=== PATIENT | male | born 1980 | race Caucasian/White ===

== ENCOUNTER 2016-09-18 | Outpatient (CLI) | payer OTHER | END 2016-09-18 11:54 | disposition EMS.NT | DX: E16.2 Hypoglycemia, unspecified (principal) ==

== ENCOUNTER 2016-09-18 | Emergency (ER) | payer OTHER, MEDICARE | END 2016-09-18 15:20 | disposition home or self-care (01) ==

== ENCOUNTER 2016-12-17 14:02 | Outpatient (CLI) | payer OTHER, MEDICARE | END 2016-12-17 14:03 | disposition home or self-care (01) | LOC: NS 14:02 | PROVIDERS: ATTEND Family Medicine | DX: Z71.3 Dietary counseling and surveillance (principal); E10.9 Type 1 diabetes mellitus without complications; Z79.4 Long term (current) use of insulin; Z68.32 Body mass index [BMI] 32.0-32.9, adult | CPT/HCPCS: 97802 ==

== ENCOUNTER 2017-01-17 10:24 | Outpatient (CLI) | payer OTHER ==
[2017-01-17 20:25] LABS: ALBUMIN/GLOBULIN RATIO 1.5 (1.0-2.2); BILIRUBIN,TOTAL 1.1 mg/dL (0.2-1.0); CALCIUM 9.2 mg/dL (8.5-10.3); POTASSIUM 3.9 mmol/L (3.5-5.0); TOTAL PROTEIN 7.5 g/dL (6.7-8.2)
[2017-01-17 20:57] LABS: HEMOGLOBIN A1C 1.32 g/dL
== END 2017-01-17 10:25 | disposition home or self-care (01) ==
LOC: LAB.WCP 10:24
PROVIDERS: ATTEND Family Medicine
DX: E11.40 Type 2 diabetes mellitus with diabetic neuropathy, unspecified (principal); F84.0 Autistic disorder
CPT/HCPCS: 36415; 80053; 82043; 83036

== ENCOUNTER 2017-04-16 14:13 | Outpatient (CLI) | payer OTHER, MEDICARE ==
[2017-04-16 19:28] LABS: HEMOGLOBIN A1C 1.18 g/dL
[2017-04-16 19:51] LABS: ALBUMIN/GLOBULIN RATIO 1.4 (1.0-2.2); BILIRUBIN,TOTAL 0.7 mg/dL (0.2-1.0); BUN - BLOOD UREA NITROGEN 13 mg/dL (6-20); CALCIUM 8.9 mg/dL (8.5-10.3); CARBON DIOXIDE - CO2 28 mmol/L (21-32); CHLORIDE 108 mmol/L (101-111); CHOL/HDL RATIO 3.9 (<5.0); CHOLESTEROL 190 mg/dL; CREATININE 0.8 mg/dL (0.6-1.2); GFR - MDRD 110 (>89); HDL CHOLESTEROL 49 mg/dL; LDL/HDL RATIO 2.6 (<3.6); POTASSIUM 3.3 mmol/L (3.5-5.0); SODIUM 141 mmol/L (135-145); TOTAL PROTEIN 6.8 g/dL (6.7-8.2); TRIGLYCERIDES 62 mg/dL; VLDL CHOLESTEROL 12 mg/dL
[2017-04-16 19:54] LABS: GLUCOSE 53 mg/dL (70-100)
== END 2017-04-16 14:14 | disposition home or self-care (01) ==
LOC: LAB.WCP 14:13
PROVIDERS: ATTEND Family Medicine
DX: E10.9 Type 1 diabetes mellitus without complications (principal)
CPT/HCPCS: 36415; 80053; 80061; 83036

== ENCOUNTER 2017-04-20 21:24 | Outpatient (CLI) | payer OTHER, MEDICARE | END 2017-04-20 21:25 | disposition EMS.NT | LOC: EMS 21:24 | PROVIDERS: ATTEND Surgery | DX: R25.9 Unspecified abnormal involuntary movements (principal); E16.2 Hypoglycemia, unspecified ==

== ENCOUNTER 2017-11-30 19:27 | Emergency (ER) | payer OTHER, MEDICARE ==
[2017-11-30] MEDS ORDERED: TETANUS/DIPHTHERIA/PERTUSSIS 0.5 ML SYRINGE IM ONE (20:25)
--- NOTE | 2017-11-30 20:25 | ED Physician Documentation ---
PD HPI LOWER EXT INJURY - Stated complaint Stated Complaint: LT ELBOW/LT LEG/RT KNEE INJ - Chief complaint Chief Complaint: Laceration - History obtained from History obtained from: Patient - History of Present Illness PD HPI LOW EXT INJURY LOCATION: Other (37-year-old gentleman with long-standing type 1 diabetes had a trip and fall and has abrasions on the left elbow and left leg. Tetanus is unknown.) Review of Systems Constitutional: reports: Reviewed and negative Throat: reports: Reviewed and negative Cardiac: reports: Reviewed and negative PD PAST MEDICAL HISTORY - Past Medical History Past Medical History: Yes Cardiovascular: High cholesterol Endocrine/Autoimmune: Type 1 diabetes, HyPOthyroidism - Past Surgical History Past Surgical History: No - Present Medications Home Medications: Ambulatory Orders Medication Instructions Recorded Confirmed Subcutaneous Insulin Pump [Insulin 90 units SUBQ DAILY 03/14/14 07/05/17 Pump] Albuterol Sulfate [Proair Hfa 1 - 2 puffs INH Q4H PRN 08/01/16 07/05/17 Inhaler] Atorvastatin Calcium [Lipitor] 80 mg PO DAILY 08/01/16 07/05/17 Cetirizine [ZyrTEC] 10 mg PO DAILY 08/01/16 07/05/17 Cholecalciferol (Vitamin D3) 1,000 unit PO DAILY 08/01/16 07/05/17 [Vitamin D3] Fluticasone [Flonase] 1 sprays DIONI TID PRN 08/01/16 07/05/17 Losartan [Cozaar] 25 mg PO DAILY 08/01/16 07/05/17 - Allergies Allergies/Adverse Reactions: Allergies Allergy/AdvReac Type Severity Reaction Status Date / Time No Known Drug Allergies Allergy Verified 11/30/17 19:36 - Social History Does the pt smoke?: No Smoking Status: Never smoker Does the pt drink ETOH?: Yes Does the pt have substance abuse?: No - Immunizations Immunizations are current?: Yes - POLST Patient has POLST: No PD ED PE NORMAL - Vitals Vital signs reviewed: Yes - General General: Alert and oriented X 3, No acute distress - HEENT HEENT: PERRL, EOMI - Neck Neck: Supple, no meningeal sign, No bony TTP - Extremities Extremities: Other (There is an abrasion over the left olecranon, no bony tenderness or limited range of motion, the remainder his upper extremities are nontender. There is a tiny abrasion over the right knee and a larger but also shallow laceration over the left arana. He is able to walk and bear weight normally and there is no tenderness of the lower extremities.) - Neuro Neuro: Alert and oriented X 3, Normal speech Results - Vitals Vitals: Vital Signs - 24 hr 11/30/17 19:32 Temperature 36.8 C Heart Rate 85 Respiratory 16 Rate Blood Pressure 144/98 H O2 Saturation 97 Oxygen O2 Source Room air PD MEDICAL DECISION MAKING - ED course ED course: Wounds were cleansed and dressed by the tech, they do not seem significant enough to warrant prophylactic antibiotics even in light of his diabetic status. Tetanus was updated. Departure - Departure Disposition: Home, Self Care Clinical Impression: Abrasion Condition: Good Record reviewed to determine appropriate education?: Yes Instructions: ED Abrasion Comments: Come back for any signs of infection which would include: Redness, swelling, drainage, increased pain, or fevers. Your blood pressure was elevated today on check into the emergency department. This does not mean that you have hypertension, it is a common phenomenon to come to the emergency department and have elevated blood pressure. I recommend that you see your primary care physician within the week to have it rechecked when you are feeling better.
[2017-11-30] MEDS ORDERED: BACITRACIN OINT TOP ONE (20:34)
[2017-11-30 21:11] VITALS: BP 130/88
== END 2017-11-30 21:10 | disposition home or self-care (01) ==
LOC: ED 19:27
DX: S50.312A Abrasion of left elbow, initial encounter (principal); S80.212A Abrasion, left knee, initial encounter; W01.0XXA Fall on same level from slipping, tripping and stumbling without subsequent striking against object, initial encounter; E78.00 Pure hypercholesterolemia, unspecified; E10.9 Type 1 diabetes mellitus without complications; Z79.4 Long term (current) use of insulin; Z96.41 Presence of insulin pump (external) (internal); R03.0 Elevated blood-pressure reading, without diagnosis of hypertension; Z23 Encounter for immunization
CPT/HCPCS: 90471; 90715; 99282; 99283; A9270

== ENCOUNTER 2018-04-23 10:39 | Outpatient (CLI) | payer OTHER, MEDICARE ==
[2018-04-23 13:36] LABS: ALBUMIN 3.9 g/dL (3.2-5.5); ALBUMIN/GLOBULIN RATIO 1.3 (1.0-2.2); BILIRUBIN,TOTAL 0.6 mg/dL (0.2-1.0); CALCIUM 9.5 mg/dL (8.5-10.3); CREATININE 0.8 mg/dL (0.6-1.2)
[2018-04-23 13:43] LABS: HB2 TOTAL 16.1 g/dL; HEMOGLOBIN A1C 1.2 g/dL
== END 2018-04-23 10:40 ==
LOC: LAB.WCP 10:39
PROVIDERS: ATTEND Family Medicine
DX: L40.9 Psoriasis, unspecified (principal); E10.9 Type 1 diabetes mellitus without complications
CPT/HCPCS: 36415; 80053; 83036

== ENCOUNTER 2018-07-30 17:16 | Outpatient (CLI) | payer OTHER, MEDICARE | END 2018-07-30 17:17 | disposition home or self-care (01) | LOC: EMS 17:16 | PROVIDERS: ATTEND Surgery | DX: R41.82 Altered mental status, unspecified (principal); Z53.20 Procedure and treatment not carried out because of patient's decision for unspecified reasons ==

== ENCOUNTER 2018-07-30 18:35 | Emergency (ER) | payer OTHER, MEDICARE ==
--- NOTE | 2018-07-30 18:52 | ED Physician Documentation ---
History of Present Illness - Stated complaint Stated Complaint: LOW BLOOD SUGAR - History obtained from History obtained from: Patient, Family - History of Present Illness Timing: Today (38-year-old gentleman with an insulin pump. He was attended to by paramedics at home just prior to arrival because his blood sugar was 16. He does not know why this happened. He was administered D50 on scene but wanted to avoid an ambulance ride up. He has he eaten since then and feels fine now. He does not remember if he bolused himself today but his basal rate is at its usual, 2.3 units/h.) Review of Systems Constitutional: denies: Fever, Chills Cardiac: denies: Chest pain / pressure, Palpitations Respiratory: denies: Dyspnea, Cough PD PAST MEDICAL HISTORY - Past Medical History Cardiovascular: High cholesterol Endocrine/Autoimmune: Type 1 diabetes, HyPOthyroidism - Past Surgical History Past Surgical History: No - Present Medications Home Medications: Ambulatory Orders Medication Instructions Recorded Confirmed Subcutaneous Insulin Pump [Insulin 90 units SUBQ DAILY 03/14/14 07/05/17 Pump] Albuterol Sulfate [Proair Hfa 1 - 2 puffs INH Q4H PRN 08/01/16 07/05/17 Inhaler] Atorvastatin Calcium [Lipitor] 80 mg PO DAILY 08/01/16 07/05/17 Cetirizine [ZyrTEC] 10 mg PO DAILY 08/01/16 07/05/17 Cholecalciferol (Vitamin D3) 1,000 unit PO DAILY 08/01/16 07/05/17 [Vitamin D3] Fluticasone [Flonase] 1 sprays DIONI TID PRN 08/01/16 07/05/17 Losartan [Cozaar] 25 mg PO DAILY 08/01/16 07/05/17 - Allergies Allergies/Adverse Reactions: Allergies Allergy/AdvReac Type Severity Reaction Status Date / Time No Known Drug Allergies Allergy Verified 07/30/18 18:57 - Social History Does the pt smoke?: No Smoking Status: Never smoker Does the pt drink ETOH?: Yes Does the pt have substance abuse?: No - Immunizations Immunizations are current?: Yes - POLST Patient has POLST: No PD ED PE NORMAL - Vitals Vital signs reviewed: Yes - General General: Alert and oriented X 3, No acute distress - Derm Derm: Normal color, Warm and dry, No rash - Neuro Neuro: Alert and oriented X 3, Normal speech - Psych Psych: Normal mood, Normal affect Results - Vitals Vitals: Vital Signs - 24 hr 07/30/18 18:44 Temperature 36.2 C L Heart Rate 113 H Respiratory 20 Rate Blood Pressure 156/103 H O2 Saturation 100 Oxygen O2 Source Room air - Labs Labs: Laboratory Tests 07/30/18 18:49 POC Whole Bld Glucose 250 H PD MEDICAL DECISION MAKING - ED course ED course: This is a type I diabetic with a hypoglycemic episode at home down to 16. His blood sugar is 250 on arrival. We will observe him for several hours with frequent blood sugar checks. 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 Return for new or worsening symptoms.
[2018-07-30 20:54] VITALS: BP 129/88
== END 2018-07-30 20:54 | disposition home or self-care (01) ==
LOC: ED 18:35
DX: E09.649 Drug or chemical induced diabetes mellitus with hypoglycemia without coma (principal); T38.3X5A Adverse effect of insulin and oral hypoglycemic [antidiabetic] drugs, initial encounter; Z96.41 Presence of insulin pump (external) (internal); E03.9 Hypothyroidism, unspecified; E78.00 Pure hypercholesterolemia, unspecified
CPT/HCPCS: 99283

== ENCOUNTER 2018-08-19 10:05 | Outpatient (CLI) | payer OTHER, MEDICARE ==
[2018-08-19 12:34] LABS: BASOPHILS % (AUTO) 0.9 %; EOSINOPHILS # (AUTO) 0.1 10^3/uL (0.0-0.7); EOSINOPHILS % (AUTO) 2.8 %; HGB - HEMOGLOBIN 14.9 g/dL (14.0-18.0); LYMPHOCYTES % (AUTO) 38.6 %; MEAN CORPUSCULAR VOLUME 88.4 fL (80.0-94.0); MEAN PLATELET VOLUME 8.8 fL (7.4-11.4); MONOCYTES # (AUTO) 0.4 10^3/uL (0.0-1.0); MONOCYTES % (AUTO) 8.1 %; NEUTROPHILS # (AUTO) 2.6 10^3/uL (1.5-6.6); NEUTROPHILS % (AUTO) 49.6 %; PLT - PLATELET COUNT 272 10^3/uL (130-450); RED BLOOD COUNT 4.94 10^6/uL (4.70-6.10); RED CELL DISTRIBUTION WIDTH 13.7 % (12.0-15.0); WHITE BLOOD COUNT 5.2 x10^3/uL (4.8-10.8)
[2018-08-19 13:04] LABS: HB2 TOTAL 15.6 g/dL; HEMOGLOBIN A1C 1.02 g/dL; HEMOGLOBIN A1C % 8.1 % (4.6-6.2)
[2018-08-19 13:25] LABS: ALBUMIN 3.9 g/dL (3.2-5.5); ALBUMIN/GLOBULIN RATIO 1.3 (1.0-2.2); ALKALINE PHOSPHATASE 83 IU/L (42-121); ALT ALANINE AMINOTRANSFERASE 27 IU/L (10-60); AST ASPARTATE AMINOTRANSFERASE 27 IU/L (10-42); BILIRUBIN,TOTAL 0.7 mg/dL (0.2-1.0); BUN - BLOOD UREA NITROGEN 22 mg/dL (6-20); CALCIUM 9.2 mg/dL (8.5-10.3); CARBON DIOXIDE - CO2 27 mmol/L (21-32); CHLORIDE 108 mmol/L (101-111); CHOLESTEROL 246 mg/dL; CREATININE 0.7 mg/dL (0.6-1.2); GFR - MDRD 127 (>89); GLUCOSE 110 mg/dL (70-100); HDL CHOLESTEROL 49 mg/dL; LDL CHOLESTEROL,CALCULATED 177 mg/dL; LDL/HDL RATIO 3.6 (<3.6); SODIUM 140 mmol/L (135-145); VLDL CHOLESTEROL 20 mg/dL
== END 2018-08-19 23:59 | disposition home or self-care (01) ==
LOC: LAB.WCP 10:05
PROVIDERS: ATTEND Family Medicine
DX: E78.5 Hyperlipidemia, unspecified (principal)
CPT/HCPCS: 36415; 80053; 80061; 82043; 83036; 83721; 84443; 85025

== ENCOUNTER 2019-02-16 08:00 | Outpatient (CLI) | payer OTHER, MEDICARE ==
[2019-02-16 20:13] LABS: CREATININE 0.8 mg/dL (0.6-1.2)
[2019-02-16 20:14] LABS: ALBUMIN 3.8 g/dL (3.2-5.5); ALBUMIN/GLOBULIN RATIO 1.2 (1.0-2.2); CALCIUM 9.1 mg/dL (8.5-10.3); TOTAL PROTEIN 7.1 g/dL (6.7-8.2)
[2019-02-16 20:33] LABS: CREATININE,URINE 144.6 mg/dL; MICROALBUM/CREATININE RATIO,UR 4.1 ug/mg (<30.0); MICROALBUMIN,URINE 0.6 mg/dL (0-300.0)
[2019-02-16 20:41] LABS: HB2 TOTAL 15.6 g/dL; HEMOGLOBIN A1C 1.18 g/dL; HEMOGLOBIN A1C % 9.1 % (4.6-6.2)
== END 2019-02-16 23:59 | disposition home or self-care (01) ==
LOC: LAB.WCP 08:00
PROVIDERS: ATTEND Family Medicine
DX: E11.40 Type 2 diabetes mellitus with diabetic neuropathy, unspecified (principal); E78.5 Hyperlipidemia, unspecified; R03.0 Elevated blood-pressure reading, without diagnosis of hypertension
CPT/HCPCS: 36415; 80053; 82043; 82570; 83036

== ENCOUNTER 2019-05-11 14:19 | Outpatient (CLI) | payer OTHER, MEDICARE ==
[2019-05-11 19:21] LABS: CALCIUM 9.3 mg/dL (8.5-10.3); CREATININE 0.9 mg/dL (0.6-1.2)
[2019-05-11 19:25] LABS: HB2 TOTAL 16.3 g/dL; HEMOGLOBIN A1C 1.07 g/dL; HEMOGLOBIN A1C % 8.2 % (4.6-6.2)
[2019-05-11 19:31] LABS: MICROALBUM/CREATININE RATIO,UR 2.8 ug/mg (<30.0); MICROALBUMIN,URINE 0.3 mg/dL (0-300.0)
== END 2019-05-11 14:20 | disposition home or self-care (01) ==
LOC: LAB.WCP 14:19
PROVIDERS: ATTEND Family Medicine
DX: Z13.9 Encounter for screening, unspecified (principal); E10.9 Type 1 diabetes mellitus without complications
CPT/HCPCS: 36415; 80048; 82043; 82570; 83036

== ENCOUNTER 2020-06-01 08:00 | Outpatient (CLI) | payer MEDICARE, OTHER ==
[2020-06-01 18:35] LABS: BASOPHILS # (AUTO) 0.1 10^3/uL (0.0-0.1); BASOPHILS % (AUTO) 0.9 %; EOSINOPHILS # (AUTO) 0.2 10^3/uL (0.0-0.7); EOSINOPHILS % (AUTO) 2.9 %; HGB - HEMOGLOBIN 15.6 g/dL (14.0-18.0); LYMPHOCYTES # (AUTO) 2.3 10^3/uL (1.5-3.5); LYMPHOCYTES % (AUTO) 42.3 %; MEAN CORPUSCULAR HEMOGLOBIN 29.5 pg (27.0-31.0); MEAN CORPUSCULAR HGB CONC 32.4 g/dL (32.0-36.0); MEAN CORPUSCULAR VOLUME 91.3 fL (80.0-94.0); MEAN PLATELET VOLUME 11.1 fL (7.4-11.4); MONOCYTES # (AUTO) 0.4 10^3/uL (0.0-1.0); MONOCYTES % (AUTO) 6.9 %; NEUTROPHILS # (AUTO) 2.6 10^3/uL (1.5-6.6); NEUTROPHILS % (AUTO) 46.8 %; PLT - PLATELET COUNT 269 10^3/uL (130-450); RED BLOOD COUNT 5.28 10^6/uL (4.70-6.10); WHITE BLOOD COUNT 5.5 x10^3/uL (4.8-10.8)
[2020-06-01 18:56] LABS: CREATININE,URINE 177.7 mg/dL; MICROALBUMIN,URINE 1.6 mg/dL (0-300.0)
[2020-06-01 19:01] LABS: ALBUMIN 4.2 g/dL (3.2-5.5); ALBUMIN/GLOBULIN RATIO 1.4 (1.0-2.2); ALKALINE PHOSPHATASE 91 IU/L (42-121); ALT ALANINE AMINOTRANSFERASE 21 IU/L (10-60); AST ASPARTATE AMINOTRANSFERASE 16 IU/L (10-42); BILIRUBIN,TOTAL 1.1 mg/dL (0.2-1.0); BUN - BLOOD UREA NITROGEN 18 mg/dL (6-20); CALCIUM 9.4 mg/dL (8.5-10.3); CARBON DIOXIDE - CO2 26 mmol/L (21-32); CHLORIDE 106 mmol/L (101-111); CHOL/HDL RATIO 4.4 (<5.0); CHOLESTEROL 259 mg/dL; CREATININE 0.8 mg/dL (0.6-1.2); HDL CHOLESTEROL 59 mg/dL; LDL CHOLESTEROL,CALCULATED 188 mg/dL; LDL/HDL RATIO 3.2 (<3.6); SODIUM 142 mmol/L (135-145); TOTAL PROTEIN 7.3 g/dL (6.7-8.2); VLDL CHOLESTEROL 12 mg/dL
[2020-06-01 19:27] LABS: GLUCOSE 58 mg/dL (70-100)
[2020-06-01 20:16] LABS: HEMOGLOBIN A1c% 9.3 % (4.27-6.07)
== END 2020-06-01 23:59 | disposition home or self-care (01) ==
LOC: LAB.WCP 08:00
PROVIDERS: ATTEND Family Medicine
DX: E10.9 Type 1 diabetes mellitus without complications (principal); E78.5 Hyperlipidemia, unspecified
CPT/HCPCS: 36415; 80053; 80061; 82043; 82570; 83036; 83721; 84443; 85025

== ENCOUNTER 2021-05-03 08:00 | Outpatient (CLI) | payer OTHER ==
[2021-05-03 11:49] LABS: BASOPHILS # (AUTO) 0.1 10^3/uL (0.0-0.1); BASOPHILS % (AUTO) 0.7 %; EOSINOPHILS # (AUTO) 0.2 10^3/uL (0.0-0.7); EOSINOPHILS % (AUTO) 2.2 %; HGB - HEMOGLOBIN 15.5 g/dL (14.0-18.0); LYMPHOCYTES # (AUTO) 2.4 10^3/uL (1.5-3.5); LYMPHOCYTES % (AUTO) 28.7 %; MEAN CORPUSCULAR HEMOGLOBIN 29.3 pg (27.0-31.0); MEAN CORPUSCULAR VOLUME 88.8 fL (80.0-94.0); MEAN PLATELET VOLUME 10.8 fL (7.4-11.4); MONOCYTES # (AUTO) 0.5 10^3/uL (0.0-1.0); MONOCYTES % (AUTO) 5.6 %; NEUTROPHILS # (AUTO) 5.1 10^3/uL (1.5-6.6); NEUTROPHILS % (AUTO) 62.6 %; PLT - PLATELET COUNT 314 10^3/uL (130-450); RED BLOOD COUNT 5.29 10^6/uL (4.70-6.10); RED CELL DISTRIBUTION WIDTH 13.2 % (12.0-15.0); WHITE BLOOD COUNT 8.2 x10^3/uL (4.8-10.8)
[2021-05-03 12:08] LABS: ALBUMIN 4.6 g/dL (3.2-5.5); ALBUMIN/GLOBULIN RATIO 1.7 (1.0-2.2); ALKALINE PHOSPHATASE 79 IU/L (42-121); ALT ALANINE AMINOTRANSFERASE 20 IU/L (10-60); AST ASPARTATE AMINOTRANSFERASE 18 IU/L (10-42); BILIRUBIN,TOTAL 1.2 mg/dL (0.2-1.0); BUN - BLOOD UREA NITROGEN 26 mg/dL (6-20); CALCIUM 9.2 mg/dL (8.5-10.3); CARBON DIOXIDE - CO2 27 mmol/L (21-32); CHLORIDE 104 mmol/L (101-111); CHOL/HDL RATIO 4.1 (<5.0); CHOLESTEROL 235 mg/dL; CREATININE 0.9 mg/dL (0.6-1.2); GFR - MDRD 93 (>89); GLUCOSE 109 mg/dL (70-100); HDL CHOLESTEROL 57 mg/dL; LDL CHOLESTEROL,CALCULATED 154 mg/dL; LDL/HDL RATIO 2.7 (<3.6); POTASSIUM 3.7 mmol/L (3.5-5.0); SODIUM 141 mmol/L (135-145); TOTAL PROTEIN 7.3 g/dL (6.7-8.2); TRIGLYCERIDES 120 mg/dL; VLDL CHOLESTEROL 24 mg/dL
[2021-05-03 12:18] LABS: THYROID STIMULATING HORMONE 2.15 uIU/mL (0.34-5.60)
[2021-05-03 12:21] LABS: ESTIMATED AVERAGE GLUCOSE 220 mg/dL (70-100); HEMOGLOBIN A1c% 9.3 % (4.27-6.07)
[2021-05-03 12:22] LABS: CREATININE,URINE 368.6 mg/dL; MICROALBUM/CREATININE RATIO,UR 7.9 ug/mg (<30.0); MICROALBUMIN,URINE 2.9 mg/dL (0-300.0)
== END 2021-05-03 23:59 | disposition home or self-care (01) ==
LOC: LAB.WCP 08:00
PROVIDERS: ATTEND Internal Medicine
DX: E10.9 Type 1 diabetes mellitus without complications (principal)
CPT/HCPCS: 36415; 80053; 80061; 82043; 82570; 83036; 83721; 84443; 85025

== ENCOUNTER 2021-05-08 17:03 | Outpatient (CLI) | payer OTHER | END 2021-05-08 17:04 | disposition critical access hospital (66) | LOC: EMS 17:03 | DX: E11.649 Type 2 diabetes mellitus with hypoglycemia without coma (principal); I10 Essential (primary) hypertension; R41.82 Altered mental status, unspecified | CPT/HCPCS: A0425; A0427 ==

== ENCOUNTER 2021-05-08 17:24 | Emergency (ER) | payer OTHER ==
--- NOTE | 2021-05-08 17:41 | ED Physician Documentation ---
History of Present Illness - Stated complaint Stated Complaint: LOW BLOOD SUGAR - Chief complaint Chief Complaint: General - History obtained from History obtained from: Patient, EMS - Additonal information Additional information: 41-year-old gentleman with type 1 diabetes and autism who uses an insulin pump became hypoglycemic and combative today. He was out of his usual routine having gone to the dentist. He states though that he pretty much ate his normal amount throughout the day though and did not bolus himself extra. His blood sugar was 40. He is back to normal now. They gave him D50 prior to arrival. Review of Systems Constitutional: denies: Fever, Chills Throat: denies: Dental pain / toothache, Sore throat Cardiac: denies: Chest pain / pressure, Palpitations Respiratory: denies: Dyspnea, Cough PD PAST MEDICAL HISTORY - Past Medical History Cardiovascular: High cholesterol Respiratory: None Neuro: None Endocrine/Autoimmune: Type 1 diabetes, HyPOthyroidism GI: None : None HEENT: None Psych: Obsessive compulsive disorder, Other Musculoskeletal: None Derm: None - Past Surgical History Past Surgical History: No - Present Medications Home Medications: Ambulatory Orders Medication Instructions Recorded Confirmed Subcutaneous Insulin Pump [Insulin 90 units SUBQ DAILY 03/14/14 07/05/17 Pump] Albuterol Sulfate [Proair Hfa 1 - 2 puffs INH Q4H PRN 08/01/16 07/05/17 Inhaler] Atorvastatin Calcium [Lipitor] 80 mg PO DAILY 08/01/16 07/05/17 Cetirizine [ZyrTEC] 10 mg PO DAILY 08/01/16 07/05/17 Cholecalciferol (Vitamin D3) 1,000 unit PO DAILY 08/01/16 07/05/17 [Vitamin D3] Fluticasone [Flonase] 1 sprays DIONI TID PRN 08/01/16 07/05/17 Losartan [Cozaar] 25 mg PO DAILY 08/01/16 07/05/17 - Allergies Allergies/Adverse Reactions: Allergies Allergy/AdvReac Type Severity Reaction Status Date / Time No Known Drug Allergies Allergy Verified 05/08/21 17:31 - Social History Does the pt smoke?: No Smoking Status: Never smoker Does the pt drink ETOH?: Yes Does the pt have substance abuse?: No - Immunizations Immunizations are current?: Yes - POLST Patient has POLST: No PD ED PE NORMAL - Vitals Vital signs reviewed: Yes - General General: Alert and oriented X 3, No acute distress - Abdomen Abdomen: Normal bowel sounds, Soft, Non tender - Neuro Neuro: Alert and oriented X 3, 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 He had been out of his normal routine going to the dentist. He was fed here and they restarted his basal rate and he was observed for 3 hours with stable blood sugars and he has follow-up with his bundler tomorrow. Departure - Departure Disposition: Home, Self Care Clinical Impression: Hypoglycemia due to insulin Condition: Good Record reviewed to determine appropriate education?: Yes Instructions: ED Diabetes Hypoglycemia Insulin React Comments: Continue your basal rate tonight, I would not bolus until you talk with your bundler tomorrow, keep that appointment. You should eat after getting home tonight as well.
[2021-05-08 19:57] VITALS: BP 162/106
== END 2021-05-08 20:36 | disposition home or self-care (01) ==
LOC: EDUNIT# → ED 17:24
DX: E10.649 Type 1 diabetes mellitus with hypoglycemia without coma (principal); Z96.41 Presence of insulin pump (external) (internal); F84.0 Autistic disorder
CPT/HCPCS: 99283

== ENCOUNTER 2022-04-25 18:47 | Emergency (ER) | payer OTHER ==
[2022-04-25] MEDS ORDERED: SODIUM CHLORIDE 0.9% 1,000 ML IV STA ×3 (19:02→19:40)
[2022-04-25 19:18] LABS: VBG PH 7.307 (7.31-7.41)
[2022-04-25 19:19] LABS: BASOPHILS % (AUTO) 1.2 %; EOSINOPHILS % (AUTO) 0.1 %; HCT - HEMATOCRIT 45.3 % (42.0-52.0); HGB - HEMOGLOBIN 15.6 g/dL (14.0-18.0); LYMPHOCYTES % (AUTO) 46.8 %; MEAN CORPUSCULAR HEMOGLOBIN 29.3 pg (27.0-31.0); MEAN CORPUSCULAR HGB CONC 34.4 g/dL (32.0-36.0); MEAN CORPUSCULAR VOLUME 85.2 fL (80.0-94.0); MEAN PLATELET VOLUME 11.1 fL (7.4-11.4); MONOCYTES % (AUTO) 20.3 %; NEUTROPHILS % (AUTO) 31.3 %; PLT - PLATELET COUNT 155 10^3/uL (130-450); RED BLOOD COUNT 5.32 10^6/uL (4.70-6.10); RED CELL DISTRIBUTION WIDTH 12.5 % (12.0-15.0); VBG BASE EXCESS -6.3 mmol/L (-2 - +2); VBG HCO3 19.6 mmol/L (23-28); VBG OXYGEN SATURATION 97.1 % (60-80); VBG TOTAL CO2 20.8 mmol/L (24-29); WHITE BLOOD COUNT 8.6 x10^3/uL (4.8-10.8)
[2022-04-25 19:23] LABS: ABNORMAL LYMPHS % (MANUAL) 0 %
[2022-04-25 19:27] LABS: KETONES, SERUM (ACETEST) SMALL (NEGATIVE)
[2022-04-25 19:33] LABS: ALBUMIN 4.2 g/dL (3.2-5.5); ALBUMIN/GLOBULIN RATIO 1.2 (1.0-2.2); ALKALINE PHOSPHATASE 97 IU/L (42-121); ALT ALANINE AMINOTRANSFERASE 75 IU/L (10-60); AST ASPARTATE AMINOTRANSFERASE 71 IU/L (10-42); BUN - BLOOD UREA NITROGEN 24 mg/dL (6-20); CALCIUM 8.8 mg/dL (8.5-10.3); CARBON DIOXIDE - CO2 19 mmol/L (21-32); CHLORIDE 97 mmol/L (101-111); CREATININE 1.2 mg/dL (0.6-1.2); GFR - MDRD 67 (>89); GLUCOSE 234 mg/dL (70-100); LIPASE 23 U/L (22-51); SODIUM 131 mmol/L (135-145); TOTAL PROTEIN 7.8 g/dL (6.7-8.2)
[2022-04-25 19:43] LABS: BAND NEUTROPHILS % (MANUAL) 7 %; BASOPHILS # (MANUAL) 0.1 10^3/uL (0-0.1); BASOPHILS % (MANUAL) 1 %; LYMPHOCYTES # (MANUAL) 4.5 10^3/uL (1.5-3.5); LYMPHOCYTES % (MANUAL) 13 %; MONOCYTES # (MANUAL) 0.8 10^3/uL (0.0-1.0); NEUTROPHILS # (MANUAL) 3.3 10^3/uL (1.5-6.6); PLATELET ESTIMATE, MANUAL NORMAL (130-450,000) (NORMAL); PLATELET MORPHOLOGY NORMAL APPEARANCE (NORMAL); RBC MORPHOLOGY (MULTIPLE) NORMAL APPEARANCE (NORMAL); REACTIVE LYMPHS % (MANUAL) 39 %; WBC MORPHOLOGY (MULTIPLE) NORMAL APPEARANCE (NORMAL)
[2022-04-25 19:44] LABS: DIFFERENTIAL COMMENT MANUAL DIFFERENTIAL
[2022-04-25] MEDS ORDERED: ONDANSETRON 4 MG/2 ML VIAL IVP STA (20:10)
--- NOTE | 2022-04-25 20:10 | ED Physician Documentation ---
History of Present Illness - Stated complaint Stated Complaint: N/V - Chief complaint Chief Complaint: Abd Pain - History obtained from History obtained from: Patient - History of Present Illness Timing: How many days ago (3) Pain level max: 0 Pain level now: 0 - Additonal information Additional information: Patient is a 42-year-old male who presents to the emergency department with nausea and vomiting for the past 3 days. No abdominal pain. Worse with eating and drinking. Nothing makes it better. He is diabetic. Blood sugar has been around 200. No fevers. No chills. No abdominal pain. He was seen at the walk-in clinic today and sent here for further evaluation. No rhinorrhea, congestion, coughing. No diarrhea. No blood in the stool or emesis Review of Systems Constitutional: denies: Fever, Chills Nose: denies: Rhinorrhea / runny nose, Congestion Throat: denies: Sore throat Cardiac: denies: Chest pain / pressure Respiratory: denies: Cough GI: reports: Nausea, Vomiting. denies: Abdominal Pain, Diarrhea Skin: denies: Rash Musculoskeletal: denies: Neck pain, Back pain Neurologic: denies: Headache PD PAST MEDICAL HISTORY - Past Medical History Past Medical History: Yes Cardiovascular: High cholesterol Respiratory: None Neuro: None Endocrine/Autoimmune: Type 1 diabetes, HyPOthyroidism GI: None : None HEENT: None Psych: Obsessive compulsive disorder, Other Musculoskeletal: None Derm: None - Past Surgical History Past Surgical History: No - Present Medications Home Medications: Ambulatory Orders Medication Instructions Recorded Confirmed Subcutaneous Insulin Pump [Insulin 90 units SUBQ DAILY 03/14/14 08/04/21 Pump] Cetirizine [ZyrTEC] 10 mg PO DAILY 08/01/16 08/04/21 Cholecalciferol (Vitamin D3) 1,000 unit PO DAILY 08/01/16 08/04/21 [Vitamin D3] Fluticasone [Flonase] 1 sprays DIONI TID PRN 08/01/16 08/04/21 Lisinopril [Zestril] 2.5 mg PO 08/04/21 Rosuvastatin Calcium [Crestor] 20 mg PO 08/04/21 Ondansetron Odt [Zofran] 4 mg TL Q6H PRN #10 tablet 04/25/22 - Allergies Allergies/Adverse Reactions: Allergies Allergy/AdvReac Type Severity Reaction Status Date / Time No Known Drug Allergies Allergy Verified 04/25/22 18:58 - Social History Does the pt smoke?: No Smoking Status: Never smoker Does the pt drink ETOH?: Yes Does the pt have substance abuse?: No - Immunizations Immunizations are current?: Yes - POLST Patient has POLST: No PD ED PE NORMAL - Vitals Vital signs reviewed: Yes - General General: Alert and oriented X 3, No acute distress, Well developed/nourished - HEENT HEENT: PERRL, Other (Dry lips) - Neck Neck: Supple, no meningeal sign - Cardiac Cardiac: RRR, Strong equal pulses - Respiratory Respiratory: No respiratory distress, Clear bilaterally - Abdomen Abdomen: Normal bowel sounds, Soft, Non tender, Non distended - Back Back: No CVA TTP, No spinal TTP - Derm Derm: Warm and dry - Extremities Extremities: No edema - Neuro Neuro: Alert and oriented X 3 - Psych Psych: Normal mood, Normal affect Results - Vitals Vitals: Vital Signs - 24 hr 04/25/22 04/25/22 04/25/22 18:49 18:57 19:16 Temperature 36.7 C Heart Rate 111 H 107 H 106 H Respiratory 18 20 18 Rate Blood Pressure 145/91 H 155/74 H 143/81 H O2 Saturation 97 97 96 04/25/22 04/25/22 04/25/22 19:54 20:20 21:00 Temperature Heart Rate 102 H 100 98 Respiratory 16 18 18 Rate Blood Pressure 116/77 139/78 H 149/83 H O2 Saturation 100 100 100 04/25/22 21:20 Temperature Heart Rate 99 Respiratory 16 Rate Blood Pressure 132/78 H O2 Saturation 96 Oxygen O2 Source Room air - Labs Labs: Laboratory Tests 04/25/22 04/25/22 04/25/22 19:08 19:08 19:08 WBC 8.6 RBC 5.32 Hgb 15.6 Hct 45.3 MCV 85.2 MCH 29.3 MCHC 34.4 RDW 12.5 Plt Count 155 MPV 11.1 Neut # (Auto) Not Reportable Lymph # (Auto) Not Reportable [place] # (Auto) Not Reportable Eos # (Auto) Not Reportable Baso # (Auto) Not Reportable Absolute Nucleated RBC Not Reportable Total Counted 100 Band Neuts % (Manual) 7 Reactive Lymphs % (Man) 39 Abnorm Lymph % (Manual) 0 Nucleated RBC % Not Reportable Neutrophils # (Manual) 3.3 Lymphocytes # (Manual) 4.5 H Monocytes # (Manual) 0.8 Eosinophils # (Manual) 0.0 Basophils # (Manual) 0.1 Differential Comment MANUAL DIFFERENTIAL WBC Morphology NORMAL APPEARANCE Platelet Estimate NORMAL (130-450,000) Platelet Morphology NORMAL APPEARANCE RBC Morph Micro Appear NORMAL APPEARANCE VBG pH 7.307 L VBG pCO2 40.0 L VBG pO2 96.0 H VBG HCO3 19.6 L VBG Total CO2 20.8 L VBG O2 Saturation 97.1 H VBG Base Excess -6.3 L Sodium 131 L Potassium 5.0 Chloride 97 L Carbon Dioxide 19 L Anion Gap 15.0 H BUN 24 H Creatinine 1.2 Estimated GFR (MDRD) 67 L Glucose 234 H Calcium 8.8 Total Bilirubin 2.0 H AST 71 H ALT 75 H Alkaline Phosphatase 97 Total Protein 7.8 Albumin 4.2 Globulin 3.6 Albumin/Globulin Ratio 1.2 Lipase 23 Serum Ketones SMALL H PD MEDICAL DECISION MAKING - ED course Complexity details: reviewed results, re-evaluated patient, considered dif ferential, d/w patient ED course: Patient is very well-appearing, nontoxic. Afebrile. Given 2 L of IV fluids. Tolerating p.o. without difficulty. Abdomen is soft, nontender nondistended on serial exam. Patient is comfortable going home at this time and will return if he worsens. Patient counseled regarding signs and symptoms for which I believe and urgent re-evaluation would be necessary. Patient with good understanding of and agreement to plan and is comfortable going home at this time This document was made in part using voice recognition software. While efforts are made to proofread this document, sound alike and grammatical errors may occur. Appears to be a viral syndrome. There is a large amount of enterovirus in the community currently. Departure - Departure Disposition: 01 Home, Self Care Clinical Impression: Dehydration Vomiting Qualifiers: Vomiting type: unspecified Nausea presence: with nausea Qualified Code(s): R11.2 - Nausea with vomiting, unspecified Condition: Good Instructions: ED Dehydration, ED Nausea Vomiting Follow-Up: Monster Contreras MD [Primary Care Provider] - Within 3 Days Prescriptions: Ondansetron Odt [Zofran] 4 mg TL Q6H PRN #10 tablet PRN Reason: Nausea / Vomiting Comments: Your prescriptions were sent to [facility] pharmacy in [place]. Please make sure you are drinking plenty of water at home. Please return if you worsen. This should improve over the next 24 hours. Discharge Date/Time: 04/25/22 21:20
[2022-04-25 21:21] VITALS: BP 132/78
== END 2022-04-25 21:20 | disposition home or self-care (01) ==
LOC: ED 18:47
DX: E86.0 Dehydration (principal); R11.2 Nausea with vomiting, unspecified
CPT/HCPCS: 36415; 80053; 82009; 82803; 83690; 85025; 96361; 96374; 99282

== ENCOUNTER 2022-10-26 10:48 | Outpatient (CLI) | payer OTHER ==
[2022-10-26 17:43] LABS: BUN - BLOOD UREA NITROGEN 29 mg/dL (6-20); CALCIUM 8.7 mg/dL (8.5-10.3); CARBON DIOXIDE - CO2 24 mmol/L (21-32); CHLORIDE 102 mmol/L (101-111); CHOL/HDL RATIO 5.7 (<5.0); CHOLESTEROL 270 mg/dL; CREATININE 0.9 mg/dL (0.6-1.2); CREATININE,URINE 74.8 mg/dL; GFR - MDRD 93 (>89); GLUCOSE 453 mg/dL (70-100); HDL CHOLESTEROL 47 mg/dL; LDL CHOLESTEROL,CALCULATED 178 mg/dL; LDL/HDL RATIO 3.8 (<3.6); MICROALBUM/CREATININE RATIO,UR 5.3 ug/mg (<30.0); MICROALBUMIN,URINE 0.4 mg/dL (0-300.0); PHOSPHORUS 3.8 mg/dL (2.5-4.6); SODIUM 136 mmol/L (135-145); TRIGLYCERIDES 223 mg/dL; VLDL CHOLESTEROL 45 mg/dL
== END 2022-10-26 10:49 | disposition home or self-care (01) ==
LOC: LAB.N 10:48
PROVIDERS: ATTEND Student in an Organized Health Care Education/Training Program
DX: E10.69 Type 1 diabetes mellitus with other specified complication (principal)
CPT/HCPCS: 36415; 80061; 80069; 82043; 82306; 82570; 83721

== ENCOUNTER 2023-01-27 18:13 | Outpatient (CLI) | payer OTHER | END 2023-01-27 23:59 | disposition EMS.NT | LOC: EMS 18:13 | DX: E11.649 Type 2 diabetes mellitus with hypoglycemia without coma (principal); R56.9 Unspecified convulsions; Z79.4 Long term (current) use of insulin ==

== ENCOUNTER 2023-03-29 09:56 | Outpatient (CLI) | payer OTHER | END 2023-03-29 23:59 | disposition EMS.NT | LOC: EMS 09:56 | DX: E11.649 Type 2 diabetes mellitus with hypoglycemia without coma (principal); Z79.4 Long term (current) use of insulin ==

== ENCOUNTER 2023-04-26 15:19 | Outpatient (CLI) | payer OTHER | END 2023-04-26 15:20 | disposition EMS.NT | LOC: EMS 15:19 | DX: E11.649 Type 2 diabetes mellitus with hypoglycemia without coma (principal) ==

== ENCOUNTER 2023-09-13 15:25 | Outpatient (CLI) | payer OTHER | END 2023-09-13 23:59 | disposition EMS.NT | LOC: EMS 15:25 | DX: E11.649 Type 2 diabetes mellitus with hypoglycemia without coma (principal); Z79.4 Long term (current) use of insulin ==

== ENCOUNTER 2023-12-13 11:26 | Outpatient (CLI) | payer OTHER ==
[2023-12-13 18:31] LABS: BUN - BLOOD UREA NITROGEN 32 mg/dL (6-20); CALCIUM 9.7 mg/dL (8.5-10.3); CARBON DIOXIDE - CO2 27 mmol/L (21-32); CHLORIDE 103 mmol/L (101-111); CHOL/HDL RATIO 3.6 (<5.0); CHOLESTEROL 262 mg/dL; GFR - MDRD 82 (>89); GLUCOSE 374 mg/dL (74-104); HDL CHOLESTEROL 73 mg/dL; LDL CHOLESTEROL,CALCULATED 153 mg/dL; LDL/HDL RATIO 2.1 (<3.6); POTASSIUM 4.8 mmol/L (3.5-4.5); SODIUM 136 mmol/L (135-145); TRIGLYCERIDES 179 mg/dL (48-352); VLDL CHOLESTEROL 36 mg/dL
[2023-12-13 20:41] LABS: ESTIMATED AVERAGE GLUCOSE 275 mg/dL (70-100); HEMOGLOBIN A1c% 11.2 % (4.27-6.07)
== END 2023-12-13 11:27 | disposition home or self-care (01) ==
LOC: LAB.N 11:26
PROVIDERS: ATTEND Internal Medicine
DX: E10.40 Type 1 diabetes mellitus with diabetic neuropathy, unspecified (principal); E78.5 Hyperlipidemia, unspecified
CPT/HCPCS: 36415; 80048; 80061; 83036; 83721

== ENCOUNTER 2024-01-17 00:46 | Outpatient (CLI) | payer OTHER | END 2024-01-17 23:59 | disposition EMS.NT | LOC: EMS 00:46 | DX: R56.9 Unspecified convulsions (principal); E10.649 Type 1 diabetes mellitus with hypoglycemia without coma ==

== ENCOUNTER 2024-03-23 13:45 | Outpatient (CLI) | payer OTHER | END 2024-03-23 13:46 | disposition EMS.NT | LOC: EMS 13:45 | DX: E11.649 Type 2 diabetes mellitus with hypoglycemia without coma (principal); R41.82 Altered mental status, unspecified ==

== ENCOUNTER 2024-04-07 00:35 | Outpatient (CLI) | payer OTHER | END 2024-04-07 00:36 | disposition short-term general hospital (02) | LOC: EMS 00:35 | DX: S81.802A Unspecified open wound, left lower leg, initial encounter (principal); S01.511A Laceration without foreign body of lip, initial encounter; S02.5XXA Fracture of tooth (traumatic), initial encounter for closed fracture; W18.39XA Other fall on same level, initial encounter; Y92.002 Bathroom of unspecified non-institutional (private) residence as the place of occurrence of the external cause | CPT/HCPCS: A0425; A0427 ==